=== PATIENT | male | born 1995 | race Caucasian/White ===

== ENCOUNTER 2018-03-28 16:33 | Emergency (ER) | payer BC, OTHER ==
[2018-03-28 18:12] LABS: ADD MAN DIFF? NO
[2018-03-28 18:14] LABS: WHITE BLOOD COUNT 5.5 10^3/ul (4.8-10.8)
[2018-03-28 18:14] LABS: BASOPHIL # 0.1 10^3/ul (0.0-0.1); BASOPHILS % 1.3 % (0.0-2.0); EOSINOPHILS # 0.2 10^3/ul (0.0-0.5); EOSINOPHILS % 2.7 % (0.0-7.0); HEMATOCRIT 41.6 % (42.0-52.0); HEMOGLOBIN 14.2 g/dl (14.0-18.0); LYMPHOCYTES # 1.6 10^3/ul (0.8-2.9); LYMPHOCYTES % 29.6 % (15.0-51.0); MEAN CORPUSCULAR HEMOGLOBIN 30.4 pg (29.0-33.0); MEAN CORPUSCULAR HGB CONC 34.1 g/dl (32.0-37.0); MEAN CORPUSCULAR VOLUME 89.1 fl (82.0-101.0); MEAN PLATELET VOLUME 9.5 fl (7.4-10.4); MONOCYTE # 0.4 10^3/ul (0.3-0.9); MONOCYTES % 6.7 % (0.0-11.0); NEUTROPHIL # 3.3 10^3/ul (1.6-7.5); NEUTROPHILS % 59.5 % (39.0-77.0); PLATELET COUNT 232 10^3/UL (140-415); RED BLOOD COUNT 4.67 10^6/ul (4.70-6.10); RED CELL DISTRIBUTION WIDTH 12.5 % (11.5-14.5)
[2018-03-28 18:32] LABS: ALANINE AMINOTRANSFERASE 21 IU/L (13-69); ALBUMIN 4.6 g/dl (3.3-4.9); ALBUMIN/GLOBULIN RATIO 1.58; ALKALINE PHOSPHATASE 98 IU/L (42-121); ANION GAP 14 (8-16); ASPARTATE AMINO TRANSFERASE 30 IU/L (15-46); BILIRUBIN,INDIRECT 0.7 mg/dl (0-1.1); BILIRUBIN,TOTAL 0.7 mg/dl (0.2-1.3); BLOOD UREA NITROGEN 10 mg/dl (7-20); CALCIUM 9.6 mg/dl (8.4-10.2); CARBON DIOXIDE 24 mmol/L (21-31); CHLORIDE 107 mmol/L (97-110); CREATININE 0.97 mg/dl (0.61-1.24); GLUCOSE 102 mg/dl (70-220); POTASSIUM 4.2 mmol/L (3.5-5.1); SODIUM 141 mmol/L (135-144); TOTAL PROTEIN 7.5 g/dl (6.1-8.1)
[2018-03-28 18:43] LABS: TROPONIN-I < 0.010 ng/ml (0.000-0.120)
== END 2018-03-28 19:19 | disposition home or self-care (01) ==
LOC: FTE 16:33
DX: R07.9 Chest pain, unspecified (principal); F84.0 Autistic disorder
CPT/HCPCS: 71045; 80053; 84484; 85025; 93005; 99285-25

== ENCOUNTER 2018-03-30 09:58 | Emergency (ER) | payer BC ==
[2018-03-30] MEDS: ONDANSETRON (ODT) 4 MG TAB ODT (11:01)
== END 2018-03-30 12:06 | disposition home or self-care (01) ==
LOC: FTE 09:58
DX: R11.10 Vomiting, unspecified (principal); R07.9 Chest pain, unspecified; F84.0 Autistic disorder
CPT/HCPCS: 71045; 93005; 99283-25

== ENCOUNTER 2018-03-30 22:50 | Emergency (ER) | payer SELFPAY, BC | END 2018-03-30 23:13 | disposition left against medical advice (07) | LOC: FTE 23:13 | DX: Z53.21 Procedure and treatment not carried out due to patient leaving prior to being seen by health care provider (principal) ==